=== PATIENT | male | born 2000 | race Caucasian/White ===

== ENCOUNTER 2024-03-15 10:18 | Emergency (ER) | payer BC ==
[2024-03-15 10:47] LABS: #Basophils 0.03 10x3/uL (0.0-0.2); %Basophils 0.6 % (0.0-1.0); %Eosinophils 1.3 % (0.0-10.0); %Lymphocytes 25.5 % (21.0-51.0); %Monocytes 4.6 % (0.0-10.0); %Neutrophils 67.6 % (42.0-75.0); Hematocrit 40.4 % (42.0-52.0); Hemoglobin 14.3 g/dL (14.0-18.0); Mean Corpuscular HGB CONC 35.4 g/dL (32.0-36.0); Mean Corpuscular Hemoglobin 31.5 pg (27.0-31.0); Mean Platelet Volume 9.2 fL (7.4-10.4); Platelet Count 234 10x3/uL (130-400); RBC Distribution Width 12.1 % (11.5-14.5); Red Blood Cell (RBC) Count 4.54 mill/uL (4.70-6.10)
[2024-03-15 11:05] LABS: INR-International Normal Ratio 1.1; PTT 29.3 sec (22.9-36.1); Prothrombin Time 14.3 sec (12.0-14.7)
[2024-03-15 11:16] LABS: ALT (SGPT) 32 U/L (8-55); AST (SGOT) 22 U/L (5-34); Albumin 4.2 g/dL (3.5-5.0); Alkaline Phosphatase 26 U/L (40-110); Anion Gap 9 mmol/L (10-20); BUN (Urea Nitrogen) 14 mg/dL (8.9-20.6); Bilirubin, Total 0.5 mg/dL (0.2-1.2); Calc. Creatinine Clearance 0 mL/min (70-130); Calcium 9.4 mg/dL (7.8-10.44); Carbon Dioxide 28 mmol/L (22-29); Chloride 106 mmol/L (98-107); Estimated GFR 103; Globulin 3.4 g/dL (2.4-3.5); Glucose 96 mg/dL (70-105); Protein, Total 7.6 g/dL (6.0-8.3); Sodium 139 mmol/L (136-145)
[2024-03-15 11:20] LABS: D-Dimer Test Less than 0.27 mcg/mL (0.27-0.43)
== END 2024-03-15 12:38 | disposition home or self-care (01) ==
LOC: ERS 10:18
DX: M25.562 Pain in left knee (principal); F17.290 Nicotine dependence, other tobacco product, uncomplicated
CPT/HCPCS: 36415; 80053; 85025; 85379; 85610; 85730